=== PATIENT | male | born 1970 | race Caucasian/White ===

== ENCOUNTER → 2016-12-11 | Outpatient (CLI) | payer OTHER ==
[2014-02-03 04:10] VITALS: BP 140/70
[~2016-12-11] MED LIST: ATOR40TA59 PO; CITA40TA5 PO; CYCL-331 PO; LISI10TA2 PO; MELO15TA23 PO; TRAZ50TA15 PO
--- NOTE | 2016-12-11 12:38 | RAD ---
SHOULDER 2+V RIGHT Clinical Indication: ACUTE RT SHOULDER PAIN X 1 WK Comparison: Right shoulder radiographs dated 02/26/2011 Findings: No acute fracture or malalignment. Ossific density between the greater tuberosity and acromion may relate to rotator cuff calcific tendinosis. Mild acromioclavicular joint arthrosis. Bony mineralization is normal for the patient's age. No significant soft tissue abnormality. No radiopaque foreign body. IMPRESSION: 1. No acute fracture or malalignment. 2. Ossific density between the greater tuberosity and acromion may relate to rotator cuff calcific tendinosis. 3. Mild acromioclavicular joint arthrosis.
== END | disposition home or self-care (01) ==
LOC: DXRADRC 10:39
PROVIDERS: ATTEND Nurse Practitioner Family
DX: M19.011 Primary osteoarthritis, right shoulder (principal)
CPT/HCPCS: 73030

== ENCOUNTER → 2017-07-12 | Outpatient (CLI) | payer OTHER ==
[2014-02-03 04:10] VITALS: BP 140/70
[2017-07-12] MEDS: IOHEXOL 300 MG/ML 75 ML VIAL. IV ONE (10:03)
[2017-07-12] MEDS: IOHEXOL 240 MG/ML 50ML VIAL. PO ONE (10:03)
--- NOTE | 2017-07-12 10:53 | RAD ---
CT of the abdomen and pelvis with contrast, 07/12/2017: HISTORY: Left-sided pain Multidetector CT imaging was performed following oral and IV administration of contrast. No hepatic abnormality is identified. The gallbladder is unremarkable. The pancreas demonstrates no intrinsic abnormality. The spleen is of normal size. No renal or adrenal abnormality is detected. There is mild aortoiliac calcific plaquing without evidence of aneurysm. No abdominal or pelvic adenopathy is seen. The urinary bladder is unremarkable. Minimal prostatic calcification is present. The bowel loops are not dilated. The appendix is visualized and shows no abnormality. No free fluid or free air is evident in the abdomen or pelvis. There is moderate degenerative disc disease at L4-5 and L5-S1 with borderline central spinal stenosis and bilateral foraminal encroachment. IMPRESSION: No acute abdominal or pelvic abnormality is detected. Electronically signed by: Terrence Vera MD (07/12/2017 10:50 AM) [facility]
== END | disposition home or self-care (01) ==
LOC: CT 08:45
PROVIDERS: ATTEND Physician Assistant Medical
DX: R10.32 Left lower quadrant pain (principal); M51.37 Other intervertebral disc degeneration, lumbosacral region; I10 Essential (primary) hypertension; Z87.891 Personal history of nicotine dependence
CPT/HCPCS: 74177; Q9966; Q9967

== ENCOUNTER → 2018-02-15 | Outpatient (CLI) | payer OTHER ==
[2014-02-03 04:10] VITALS: BP 140/70
[~2018-02-15] MED LIST changes: +TRAZ-85 PO; -TRAZ50TA15 PO
--- NOTE | 2018-02-15 16:36 | CARD ---
MR#: [id number] Date of Study: 02/15/2018 Ordering Physician: ELIZABETH BARAJAS, Referring Physician: ELIZABETH BARAJAS, Tech: Serene Banegas MARK APPROVED REPORT EXAM: Two-dimensional and M-mode echocardiogram with Doppler and color Doppler. Other Information Quality : Fair INDICATION Dyspnea RISK FACTORS Smoking 2D DIMENSIONS RVDd2.2 (2.9-3.5cm)Left Atrium(2D)3.0 (1.6-4.0cm) IVSd0.9 (0.7-1.1cm)Aortic Root(2D)3.2 (2.0-3.7cm) LVDd5.5 (3.9-5.9cm)LVOT Diameter2.4 (1.8-2.4cm) PWd1.0 (0.7-1.1cm)LVDs3.8 (2.5-4.0cm) FS (%) 32.2 %SV89.2 ml LVEF(%)59.8 (>50%) Aortic Valve AoV Peak Mandeep.134.6cm/sAoV VTI25.5cm AO Peak GR.7.2mmHgLVOT Peak Mandeep.101.6cm/s LVOT VTI 21.09cmAO Mean GR.4mmHg MADY (VMAX)3.34le7ETU (VTI)3.67cm2 Mitral Valve MV E Enpkecsw90.5cm/sMV DECEL FPBQ635or MV A Bpcrbxru94.4cm/sE/A Ratio0.9 Tricuspid Valve TR P. Xjnrdqon519uv/sRAP NEMHDCPB7mvAh TR Peak Gr.14fkNoWDKO13fqVt Pulmonary Vein S1 Hsazywls60.3cm/sD2 Dppbqqep15.5cm/s LEFT VENTRICLE The left ventricle is normal size. There is normal left ventricular wall thickness. The left ventricu lar systolic function is normal and the ejection fraction is within normal range. The Ejection Fracti on is 55-60%. There is normal LV segmental wall motion. Transmitral Doppler flow pattern is Grade I-a bnormal relaxation pattern. RIGHT VENTRICLE The right ventricle is normal size. The right ventricular systolic function is normal. ATRIA The left atrium size is normal. The right atrium size is normal. The interatrial septum is intact wit h no evidence for an atrial septal defect or patent foramen ovale as noted on 2-D or Doppler imaging. AORTIC VALVE The aortic valve is calcified but opens well. Doppler and Color Flow revealed no significant aortic r egurgitation. There is no significant aortic valvular stenosis. MITRAL VALVE The mitral valve is normal in structure and function. There is no evidence of mitral valve prolapse. There is no mitral valve stenosis. Doppler and Color Flow revealed no mitral valve regurgitation note d. TRICUSPID VALVE The tricuspid valve is normal in structure and function. Doppler and Color Flow revealed trace tricus pid regurgitation. The PA pressure was estimated at 29 mmHg. There is no tricuspid valve stenosis. PULMONIC VALVE The pulmonic valve is not well visualized. Doppler and Color Flow revealed trace pulmonic valvular re gurgitation. There is no pulmonic valvular stenosis. GREAT VESSELS The aortic root is normal in size. The ascending aorta is normal in size. The IVC is normal in size a nd collapses >50% with inspiration. PERICARDIAL EFFUSION There is no evidence of significant pericardial effusion. Critical Notification Critical Value: No <Conclusion> The left ventricle is normal size. The left ventricular systolic function is normal and the ejection fraction is within normal range. The Ejection Fraction is 55-60%. There is no significant aortic valvular stenosis. Doppler and Color Flow revealed no significant aortic regurgitation. Doppler and Color Flow revealed no mitral valve regurgitation noted. Doppler and Color Flow revealed trace tricuspid regurgitation. The PA pressure was estimated at 29 mmHg. Signed by : Darryl Santana MD Electronically Approved : 02/15/2018 16:34:25
--- NOTE | 2018-02-17 12:20 | RAD ---
MR#: [id number] Date of Study: 02/15/2018 Ordering Physician: ELIZABETH BARAJAS, Referring Physician: ELIZABETH BARAJAS, Tech: Nidhi Pham RDMS, RVT, RTR APPROVED REPORT Patient Location: OUT-PATIENT Indications Grayscale images of the bilateral lower extent B arterial vessels reveal minimal atherosclerotic plaq ue. There are normal triphasic spectral waveforms throughout the right and left lower extremity arterial tree. Velocities are grossly within normal limits above the knee. Below the knee slightly diminished velocities are noted in the left peroneal and the right dorsalis pedis artery but otherwise no focal obstruction is noted. Critical Notification Critical Value: No <Conclusion> 1. No focal obstruction noted in the bilateral lower extremity arterial vessels with normal triphasic waveforms and three-vessel runoff below the knee. Signed by : Elizabeth Barajas, Electronically Approved : 02/17/2018 12:19:11
== END | disposition home or self-care (01) ==
LOC: US 12:30
PROVIDERS: ATTEND Internal Medicine Cardiovascular Disease
DX: I70.293 Other atherosclerosis of native arteries of extremities, bilateral legs (principal); I35.8 Other nonrheumatic aortic valve disorders; F17.200 Nicotine dependence, unspecified, uncomplicated
CPT/HCPCS: 93306; 93925

== ENCOUNTER → 2018-02-17 | Outpatient (CLI) | payer OTHER ==
[2014-02-03 04:10] VITALS: BP 140/70
[2018-02-17] MEDS: REGADENOSON 0.4 MG/5 ML DISP.SYRIN. IV ONE (09:00)
--- NOTE | 2018-02-17 11:23 | RAD ---
MR#: [id number] Date of Study: 02/17/2018 Ordering Physician: ELIZABETH BARAJAS, Referring Physician: LNAA MCKINLEY Tech: MERCY Ruvalcaba APPROVED REPORT Test Type: Pharmacological Stress Nurse/Tech: MERCY Ruvalcaba Test Indications: Risk Factors - Family HX Cardiac History: elevated cholesterol Medications: see EHR Medical History: see EHR Resting ECG: SR No acute Abnormality Resting Heart Rate: 68 bpm Resting Blood Pressure: 123/41mmHg Pretest Chest Pain: None Nurse/Tech Notes Consent: The procedure was explained to the patient in lay terms. Informed consent was witnessed. Ignacio eout was entered into [employer]. History and Stress Test performed by MERCY Ruvalcaba Pharm. Details Pharmacologic stress testing was performed using 0.4mg per 5ml of regadenoson given intravenously ove r 7-10 seconds. INTERPRETATION Stress EKG Conclusion: Baseline EKG showed sinus rhythm. No ischemic changes at peak stress. No arr hythmias. Imaging Protocol IMAGE PROTOCOL: Rest Tc-99m/stress Tc-99m 1 day Rest: Stress: Viability: Radiopharm.Tc99m TyonbbzneFd89c Sestamibi Dose11.8mCi 32.8mCi Duration 17min. 15min. Img Date 02/17/2018 02/17/2018 Inj-Img Vfok29bri. 60min. Rest Admin Site:IV - Right AntecubitalAdministrator: MERCY Ruvalcaba Stress Admin Site: IV - Right AntecubitalAdministrator: MERCY Ruvalcaba STRESS DATA End Diast. Vol.143.0mlAv. Heart Rate71.0bpm LVEDV index BSA2.0mlCardiac Output0.1L/min End Syst. Vol.45.0mlCO Index BSA6.9L/min LVESV index BSA1.0mlMyocardial Tzsi440.0g Eject. Fallyjfi60.0% Stress Rates Pk. Fill Rate3.36EDV/secLVtime Pk. Fill 120.03msec Pk. Empty Rate3.57ESV/secLVtime Pk. Nogtw462.85msec 1/3 Pk. Fill2.35EDV/sec Stress Scores Regional WT0.00Summed WT1.00 Regional WM0.00Summed WM0.00 Study quality was good. Left Ventricular size was Normal at Rest and Stress. Lung uptake was . Left Ventricular ejection fraction is 69%. The rest and stress images show normal perfusion, normal contraction and thickening. LV Perf. Quant 17 Seg. SSS1.00 17 Seg. SRS3.00 17 Seg. SDS1.00 Stress Defect Extent (% LAD)0.00Rest Defect Extent (% LAD)0.00Rev. Defect Extent (% LAD)0.00 Stress Defect Extent (% LCX) 0.00Rest Defect Extent (% LCX)0.00Rev. Defect Extent (% LCX)0.00 Stress Defect Extent (% RCA)0.00Rest Defect Extent (% RCA)0.00Rev. Defect Extent (% RCA)0.00 Stress Defect Extent (% DARBY)0.00Rest Defect Extent (% DARBY)0.90Rev. Defect Extent (% DARBY)0.00 Conclusion 1. Regadenoson cardioisotope stress test did not show any evidence of ischemia or infarct. 2. Normal left ventricular systolic function with ejection fraction calculated at 69%. 3. Low risk for cardiac events. Signed by : Frederick Ibrahim, Electronically Approved : 02/17/2018 11:22:01
== END | disposition home or self-care (01) ==
LOC: NM 07:25
PROVIDERS: ATTEND Internal Medicine Cardiovascular Disease
DX: R06.09 Other forms of dyspnea (principal); E78.00 Pure hypercholesterolemia, unspecified; I10 Essential (primary) hypertension; J45.909 Unspecified asthma, uncomplicated; Z87.891 Personal history of nicotine dependence
CPT/HCPCS: 78452; 93017; 96374; 96375; 96376; A9500; J2785

== ENCOUNTER 2021-08-02 11:26 | Emergency (ER) | payer OTHER ==
[~2021-08-02] VITALS: Ht 167.6 cm; Wt 95.9 kg
[~2021-08-02 11:26] MED LIST changes: -CITA40TA5 PO; +CITA40TA6 PO; -CYCL-331 PO; +CYCL10TA19 PO; +LISI10TA16 PO; -LISI10TA2 PO; +TRAZ-120 PO; -TRAZ-85 PO
[2021-08-02 11:35] VITALS: BP 129/64
--- NOTE | 2021-08-02 11:52 | PHYS DOC ---
Past History Past Medical History: Arthritis, Depression, High Cholesterol, Hypertension Past Surgical History: Other Alcohol Use: None Drug Use: None Adult General Chief Complaint Chief Complaint: FOOT INJURY PAIN [facility] HPI Patient is a 51 year old Male who presents with Right foot pain and swelling. Patient reports he was standing near a backhoe which was digging, with the stabilizer blade lowered. Reports as the bucket was digging, the bucket had slipped, causing the backhoe to jump, and the stabilizer blade had caught the patient's foot, he was wearing heavy boots. States he felt a pop when the episode occurred, he has been ambulatory however has had continued discomfort, Reports pain 4/10 at this time. He reports episode occurred approximately 0900 this morning. States no paresthesia to toes or foot, states he can move his toes well. Denies any discomfort to knee, denies any discofort to ankle. Review of Systems Review of Systems Constitutional: Denies fever or chills [] Respiratory: Denies cough or shortness of breath [] Cardiovascular: No additional information not addressed in HPI [] GI: Denies abdominal pain, nausea, vomiting, bloody stools or diarrhea [] Musculoskeletal: Denies back pain or joint pain [] right foot pain Integument: Denies rash or skin lesions [] does endorse some bruising Neurologic: Denies headache, focal weakness or sensory changes [] denies paresthesia All other systems were reviewed and found to be within normal limits, except as documented in this note. Allergies Allergies Allergies Coded Allergies Type Severity Reaction Last Updated Verified No Known Drug Allergies 02/03/14 No Physical Exam Physical Exam Constitutional: Well developed, well nourished, no acute distress, non-toxic appearance. [] HENT: Normocephalic, atraumatic, nose normal. [] Eyes: PERRLA, EOMI, conjunctiva normal, no discharge. [] Neck: Normal range of motion, no tenderness, supple, no stridor. [] Cardiovascular:Heart rate regular rhythm, no murmur [] brisk capillary refill to all digits noted Skin: Warm, dry, no rash. [] Minimal bruising and erythema noted to superficial aspect of right foot. No abrasions or lacerations noted. Back: No tenderness, no CVA tenderness. [] Extremities: no cyanosis, no clubbing, ROM intact, no edema. [] Tenderness noted over medial portion of anterior aspect right foot. Neurologic: Alert and oriented X 3, normal motor function, normal sensory function, no focal deficits noted. [] Sensation intact to all digits Psychologic: Affect normal, judgement normal, mood normal. [] EKG EKG [] Radiology/Procedures Radiology/Procedures [] Impressions: PATIENT: PARIS LIZAMA ACCOUNT: [id number] : 1970 LOCATION: ER AGE: 51 SEX: M EXAM STATUS: REG ER ORD. PHYSICIAN: AMPARO EDMOND APRN REASON: Swelling, pain PROCEDURE: FOOT RIGHT 3V Right foot 3 views. HISTORY: Pain and swelling 3 views were taken of the right foot. There are transverse fractures through the distal third of the second and third metatarsal. There is a nondisplaced fra cture of the fourth metatarsal. No other fracture or acute osseous abnormality noted. IMPRESSION: 1. Fractures second, third and fourth metatarsals. Electronically signed by: Ayo Bennett MD (08/02/2021 1:04 PM) [id number] Heart Score C/O Chest Pain: N/A Risk Factors: Risk Factors: DM, Current or recent (<one month) smoker, HTN, HLP, family history of CAD, obesity. Risk Scores: Risk Factors: DM, Current or recent (<one month) smoker, HTN, HLP, family history of CAD, obesity. Course & Med Decision Making Course & Med Decision Making Pertinent Labs and Imaging studies reviewed. (See chart for details) [] Patient procedure to right foot from the stabilization related back, he has been ambulatory following the incident. He complaining of pain over the lateral aspect of the foot. Injury approximately 2 to 3 hours prior to coming to the emergency room. No signs of compartment syndrome at this time. Does have some minimal erythema and bruising over anterior aspect of foot, no swelling. He has been ambulatory. He was wearing protective clothing protective heavy boots. We will evaluate imaging at this time. He reports his pain is controlled at thi s time, he has no additional complaints @[address] Robins, podiatry, recommends posterior splint, follow-up in Ortho clinic in 1 week, and keep weight off of the foot. With foot elevated Patient advised of findings, splint applied by ER Medic. Patient avises he may need to go elsewhere based on Workers Comp. Will provide X ray disc for follow up. following splinting, neurovascular remains intact, Sensation remains intact. Dragon Disclaimer Dragon Disclaimer This electronic medical record was generated, in whole or in part, using a voice recognition dictation system. 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 Follow up with the Radiation Therapy Technician, call their office on Wednesday for an appointment within 1 week Continue to take your home pain medications Take Tylenol or ibuprofen for discomfort If you have worsening pain, lose sensation in your foot or toes, or other concerning findings, return to the ER Problem Qualifiers Primary Impression: Fracture of metatarsal of right foot, closed Encounter type: initial encounter Metatarsal bone: second Fracture alignment: displaced Qualified Codes: S92.321A - Displaced fracture of second metatarsal bone, right foot, initial encounter for closed fracture AMPARO EDMOND APRN August 02, 2021 11:52
--- NOTE | 2021-08-02 13:07 | RAD ---
Right foot 3 views. HISTORY: Pain and swelling 3 views were taken of the right foot. There are transverse fractures through the distal third of the second and third metatarsal. There is a nondisplaced fracture of the fourth metatarsal. No other frac ture or acute osseous abnormality noted. IMPRESSION: 1. Fractures second, third and fourth metatarsals. Electronically signed by: Ayo Bennett MD (08/02/2021 1:04 PM) [id number]
== END 2021-08-02 13:33 | disposition home or self-care (01) ==
LOC: ER 11:26
DX: S92.321A Displaced fracture of second metatarsal bone, right foot, initial encounter for closed fracture (principal); M19.90 Unspecified osteoarthritis, unspecified site; E78.00 Pure hypercholesterolemia, unspecified; I10 Essential (primary) hypertension; W22.8XXA Striking against or struck by other objects, initial encounter; Y93.89 Activity, other specified; Y92.89 Other specified places as the place of occurrence of the external cause; Y99.0 Civilian activity done for income or pay
CPT/HCPCS: 29515; 73630; 99283